=== PATIENT | male | born 1960 | race Caucasian/White ===

== ENCOUNTER 2020-02-10 12:42 | Emergency (ER) | payer MEDICARE, OTHER ==
[2020-02-10] MEDS: Ketorolac 30 MG/ML SDV IVPUSH ONE (14:23)
--- NOTE | 2020-02-10 15:10 | EDM.PDOC ---
ED HPI GENERAL MEDICAL PROBLEM - General Chief Complaint: Back Pain or Injury Stated Complaint: FALL, HEMATOMA Time Seen by Provider: 02/10/20 12:46 Source of Information: Reports: Patient History Limitations: Reports: No Limitations - History of Present Illness INITIAL COMMENTS - FREE TEXT/NARRATIVE: Pt slipped on ice and fell back and hit head and back Landed on his back Has previous hx/o back pain No LOC Brought to ER via EMS Pt complains of KING, neck pain, lumbar pain, right shoulder pain and right elbow pain Onset: Today, Sudden Location: Reports: Head, Neck, Back, Upper Extremity, Right Quality: Reports: Stabbing Severity: Moderate Improves with: Reports: Immobilization Worsens with: Reports: Movement Context: Reports: Trauma Right Shoulder Pain Score (Numeric/FACES): 8 - Related Data Allergies Allergy/AdvReac Type Severity Reaction Status Date / Time Penicillins Allergy Swelling Verified 02/10/20 12:51 Home Meds: Home Meds Naproxen [Naprosyn] 500 mg PO BID 02/10/20 [History] Potassium Chloride [Klor-Con 10] 10 meq PO DAILY 02/10/20 [History] Ranitidine HCl [Zantac 75] 75 mg PO DAILY 02/10/20 [History] Triamterene/Hydrochlorothiazid [Triamterene-HCTZ 37.5-25 MG] 1 each PO DAILY [History] Social & Family History - Tobacco Use Smoking Status *Q: Former Smoker Years of Tobacco use: 52 Packs/Tins Daily: 1 Used Tobacco, but Quit: Yes Month/Year Tobacco Last Used: 2019 - Caffeine Use Caffeine Use: Reports: Coffee - Recreational Drug Use Recreational Drug Use: No ED ROS GENERAL - Review of Systems Review Of Systems: See Below Constitutional: Reports: No Symptoms HEENT: Reports: Other (Scalp pain) Respiratory: Reports: No Symptoms Cardiovascular: Reports: No Symptoms GI/Abdominal: Reports: No Symptoms Musculoskeletal: Reports: Neck Pain, Shoulder Pain, Back Pain, Joint Pain, Other (elbow pain) ED EXAM, UPPER BACK/NECK PAIN - Physical Exam Exam: See Below Exam Limited By: No Limitations General Appearance: Moderate Distress Eye Exam: Bilateral Eye: EOMI, PERRL Ears Exam: Normal External Exam Nose Exam: Normal Inspection Throat/Mouth Exam: Normal Inspection Head Exam: Scalp Tenderness Neck Exam: Limited Range of Motion, Tenderness Cardiovascular/Respiratory: Regular Rate, Rhythm, Normal Breath Sounds GI/Abdominal: Non-Tender Back Exam: Muscle Spasm, Other (Diffuse lumbar tenderness) Extremities: Other (Right shoulder and right elbow tender No deformity Limited ROM) Neurologic: software support representative II-XII nml As Tested, No Motor/Sensory Deficits, Normal Mood/ Affect, Oriented x 3, Other (GCS-15) Course - Vital Signs Last Recorded V/S: Last Vital Signs Temp 98 F 02/10/20 12:43 Pulse 64 02/10/20 12:43 Resp 18 02/10/20 12:43 BP 124/91 H 02/10/20 12:43 Pulse Ox 96 02/10/20 12:43 - Orders/Labs/Meds Orders: Active Orders 24 hr Category Date Time Status Cervical Spine wo Cont [CT] Stat Exams 02/10/20 12:50 Taken Elbow Min 3V Rt [CR] Stat Exams 02/10/20 12:53 Taken Head wo Cont [CT] Stat Exams 02/10/20 12:50 Taken Lumbar Spine wo Cont [CT] Stat Exams 02/10/20 12:51 Taken Shoulder Comp Rt [CR] Stat Exams 02/10/20 12:52 Taken Meds: Medications Discontinued Medications Generic Name Dose Route Start Last Admin Trade Name Freq PRN Reason Stop Dose Admin Ketorolac Tromethamine 30 mg 02/10/20 14:10 02/10/20 14:23 Toradol IVPUSH 02/10/20 14:11 30 mg ONETIME ONE Administration - Re-Assessments/Exams Free Text/Narrative Re-Assessment/Exam: 02/10/20 15:08 See xray reports No acute injury Pt given Toradol 30 mg IV in ER Departure - Departure Time of Disposition: 15:30 Disposition: Home, Self-Care 01 Clinical Impression: Multiple contusions - Discharge Information *PRESCRIPTION DRUG MONITORING PROGRAM REVIEWED*: Not Applicable *COPY OF PRESCRIPTION DRUG MONITORING REPORT IN PATIENT LEORA: Not Applicable Referrals: PCP,Not In Area [Primary Care Provider] - Additional Instructions: Follow up in clinic Rx Tramadol 50 mg PO every 6 hours prn Sepsis Event Note - Evaluation Sepsis Screening Result: No Definite Risk - Focused Exam Vital Signs: Vital Signs Temp Pulse Resp BP Pulse Ox 02/10/20 12:43 98 F 64 18 124/91 H 96 Date Exam was Performed: 02/10/20 Time Exam was Performed: 15:04 - My Orders Last 24 Hours: My Active Orders 02/10/20 12:50 Cervical Spine wo Cont [CT] Stat Head wo Cont [CT] Stat 02/10/20 12:51 Lumbar Spine wo Cont [CT] Stat 02/10/20 12:52 Shoulder Comp Rt [CR] Stat 02/10/20 12:53 Elbow Min 3V Rt [CR] Stat - Assessment/Plan Last 24 Hours: My Active Orders 02/10/20 12:50 Cervical Spine wo Cont [CT] Stat Head wo Cont [CT] Stat 02/10/20 12:51 Lumbar Spine wo Cont [CT] Stat 02/10/20 12:52 Shoulder Comp Rt [CR] Stat 02/10/20 12:53 Elbow Min 3V Rt [CR] Stat
== END 2020-02-10 15:24 | disposition home or self-care (01) ==
LOC: LL.ED 12:42
DX: S51.011A Laceration without foreign body of right elbow, initial encounter (principal); S30.0XXA Contusion of lower back and pelvis, initial encounter; M25.511 Pain in right shoulder; Z87.891 Personal history of nicotine dependence; Z88.0 Allergy status to penicillin; Z79.899 Other long term (current) drug therapy; W00.0XXA Fall on same level due to ice and snow, initial encounter
CPT/HCPCS: 70450; 72125; 72131; 73030; 73080; 96374; 99284; J1885